=== PATIENT | male | born 2000 | race African-American/Black ===

== ENCOUNTER 2020-08-04 08:54 | Emergency (ER) | payer OTHER, SELFPAY ==
[2020-08-04] MEDS ORDERED: MORPHINE 4 MG/ML SYR ONE (09:41)
[2020-08-04] MEDS ORDERED: ONDANSETRON 4 MG/2 ML VIAL ONE (09:41)
[2020-08-04 09:47] LABS: ALT/SGPT 35 U/L (12-78); AST/SGOT 26 U/L (15-37); Alkaline Phosphatase 87 U/L (45-117); BUN Blood Urea Nitrogen 14 mg/dL (7-18); Bicarbonate 27 mmol/L (21-32); Bilirubin Direct 0.1 mg/dL (0-0.2); Bilirubin Total 0.5 mg/dL (0.2-1.0); Glucose Level 102 mg/dL (74-106); Lipase 63 U/L (73-393); Potassium 3.2 mmol/L (3.5-5.1); Protein, Total 8.1 g/dL (6.4-8.2); Sodium Level 139 mmol/L (136-145)
--- NOTE | 2020-08-04 10:02 | RAD REPORT ---
EXAM DESCRIPTION: CT - Abdomen Pelvis W Contrast - 08/04/2020 9:49 am CLINICAL HISTORY: eval for appendicitis;Abd pain, right upper quadrant pain COMPARISON: No comparisons TECHNIQUE: Biphasic, helical CT imaging of the abdomen and pelvis was performed following 100 ml non -ionic IV contrast. No oral contrast administered. All CT scans are performed using dose optimization technique as appropriate and may include automated exposure control or mA/KV adjustment according to patient size. FINDINGS: No suspicious findings in the lung bases. The liver, spleen, and pancreas show no suspicious findings. Gallbladder and biliary tree are also wi thout suspicious finding. Symmetric renal function is seen with no hydronephrosis or suspicious renal mass. No pyelonephritis o r acute parenchymal process. No bladder abnormalities. No adrenal abnormalities. Food and fluid fill the stomach. No gastric wall thickening or mass. No gastric outlet obstruction id entified. No acute small bowel finding. No dilation of the appendix and no abnormal appendix wall thickening or edema confirmed. There is no appendicolith. No stranding in the adjacent fat or abnormal adjacent mesenteric lymphadenopathy. Smal l central mesenteric lymph nodes are present. Along the anti mesenteric margin of the right transvers e colon there is stranding and edema in the fat. This is an appearance consistent with epiploic appen dagitis. No mass of the colon wall. No free air, free fluid or pneumatosis. No other area of inflamma tory stranding. No mass or bulky lymphadenopathy. Minimal fat extends into the proximal portion of e ach inguinal canal. No suspicious bony findings. IMPRESSION: Acute appendicitis is not suspected at this time. Patient has stranding and edematous change in the fat adjacent to the right-side transverse colon. Th is is an appearance consistent with an epiploic appendagitis. Patient also has a few nonspecific cent ral mesenteric lymph nodes.
[2020-08-04 10:04] LABS: Absolute Lymphocytes (CBC) 1.8 K/uL (0.7-4.9); Basophils % 0.4 % (0-1.3); Hematocrit 41.4 % (39.6-49.0); Lymphocytes % 24.6 % (15.3-44.8); MPV 8.8 fL (7.6-11.3); RBC Red Blood Cell Count 4.89 M/uL (4.33-5.43)
--- NOTE | 2020-08-04 10:10 | EDPHYS ---
Physician Documentation [facility] Name: Mathew Perdomo Age: 20 yrs Sex: Male : 2000 Arrival Date: 08/04/2020 Time: 08:55 Bed 7 Private MD: ED Physician Anson Alvarez HPI: 08/04 09:10 This 20 yrs old Black Male presents to ER via Ambulatory with complaints of Abdominal rn Pain. 09:10 The patient presents with abdominal pain right lower quadrant. Onset: The rn symptoms/episode began/occurred 2 day(s) ago. The symptoms do not radiate. Associated signs and symptoms: Pertinent positives: anorexia, diarrhea, Pertinent negatives: blood in stools, fever, shortness of breath, testicular pain, vomiting blood. The symptoms are described as achy, sharp. Modifying factors: The symptoms are alleviated by nothing, the symptoms are aggravated by movement. Severity of pain: At its worst the pain was moderate in the emergency department the pain is unchanged. The patient has not experienced similar symptoms in the past. The patient has not recently seen a physician. 2 Days of RLQ pain, no fever, + diarrhea, constant, worse with movement and riding in car. . Historical: - Allergies: 09:07 Amoxicillin; iw - Home Meds: 09:07 None [Active]; iw - PMHx: 09:07 None; iw - PSHx: 09:07 left knee; iw - Immunization history:: Adult Immunizations up to date. - Social history:: Smoking status: Patient denies any tobacco usage or history of. - Family history:: not pertinent. - Hospitalizations: : No recent hospitalization is reported. ROS: 09:10 Constitutional: Negative for fever, chills, and weight loss, Eyes: Negative for injury, rn pain, redness, and discharge, Neck: Negative for injury, pain, and swelling, Cardiovascular: Negative for chest pain, palpitations, and edema, Respiratory: Negative for shortness of breath, cough, wheezing, and pleuritic chest pain, Abdomen/GI: Negative for nausea, vomiting, and constipation, Back: Negative for injury and pain, MS/Extremity: Negative for injury and deformity, Skin: Negative for injury, rash, and discoloration, Neuro: Negative for headache, weakness, numbness, tingling, and seizure. Exam: 09:10 Constitutional: This is a well developed, well nourished patient who is awake, alert, rn and in no acute distress. Head/Face: Normocephalic, atraumatic. Cardiovascular: Regular rate and rhythm. No pulse deficits. Respiratory: No increased work of breathing, no retractions or nasal flaring. Abdomen/GI: soft, + RLQ tenderness, no rebound Skin: Warm, dry MS/ Extremity: Pulses equal, no cyanosis. Neurovascular intact. Full, normal range of motion. Equal circumference. Neuro: Awake and alert, GCS 15 Vital Signs: 09:04 BP 142 / 96; Pulse 100; Resp 18 S; Pulse Ox 98% on R/A; Weight 113.4 kg; Height 5 ft. 9 iw in. (175.26 cm); Pain 6/10; 10:12 BP 153 / 83; Pulse 76; Resp 16; Pulse Ox 99% ; bp 09:04 Body Mass Index 36.92 (113.40 kg, 175.26 cm) iw MDM: 09:04 Patient medically screened. rn 10:08 Differential diagnosis: appendicitis, diverticulitis, non-specific abd pain, colitis, rn enteritis. Data reviewed: vital signs, nurses notes, lab test result(s), radiologic studies, CT scan, and as a result, I will discharge patient. Counseling: I had a detailed discussion with the patient and/or guardian regarding: the historical points, exam findings, and any diagnostic results supporting the discharge/admit diagnosis, lab results, radiology results, the need for outpatient follow up, to return to the emergency department if symptoms worsen or persist or if there are any questions or concerns that arise at home. Special discussion: Based on the patient's Hx, exam, and Dx evaluation, there is no indication for emergent surgery or inpatient Tx. It is understood by the patient/guardian that if the Sx's persist or worsen they need to return immediately for re-evaluation. I discussed with the patient/guardian in detail that at this point there is no indication for admission to the hospital. It is understood, however, that if the symptoms persist or worsen the patient needs to return immediately for re-evaluation. 10:08 ED course: No acute appendicitis changes on CT abdomen.. rn 08/04 09:09 Order name: Basic Metabolic Panel; Complete Time: 09:50 rn 08/04 09:09 Order name: CBC with Diff rn 08/04 09:09 Order name: Hepatic Function; Complete Time: 09:50 rn 08/04 09:09 Order name: Lipase; Complete Time: :50 rn 08/04 09:09 Order name: CT Abd/Pelvis - IV Contrast Only; Complete Time: 10:04 rn 08/04 09:09 Order name: IV Saline Lock; Complete Time: : rn 08/04 09:09 Order name: Labs collected and sent; Complete Time: : rn 08/04 09:09 Order name: NPO; Complete Time: rn Administered Medications: 09:20 Drug: morphine 4 mg Route: IVP; Site: right forearm; bp 10:32 Follow up: Response: No adverse reaction; Pain is decreased bp 09:20 Drug: Zofran (Ondansetron) 4 mg Route: IVP; Site: right forearm; bp 10:32 Follow up: Response: No adverse reaction; Pain is decreased bp Disposition: 08/04/20 10:10 Discharged to Home. Impression: Epiploic Appendagitis, Nonspecific mesenteric lymphadenitis. - Condition is Stable. - Discharge Instructions: Colitis. - Prescriptions for Cipro 500 mg Oral Tablet - take 1 tablet by ORAL route every 12 hours for 10 days; 20 tablet. Flagyl 500 mg Oral Tablet - take 1 tablet by ORAL route every 8 hours for 10 days; 30 tablet. - Medication Reconciliation Form, Thank You Letter, Antibiotic Education, Prescription Opioid Use, Work release form form. - Follow up: Private Physician; When: As needed; Reason: Recheck today's complaints, Re-evaluation by your physician. - Problem is new. - Symptoms have improved. Signatures: Dispatcher [employer] Meri Arndt RN RN iw Nieto, Roman, MD MD rn Peltier, Brian RN RN bp Corrections: (The following items were deleted from the chart) 10:32 10:10 08/04/2020 10:10 Discharged to Home. Impression: Epiploic Appendagitis; bp Nonspecific mesenteric lymphadenitis. Condition is Stable. Forms are Medication Reconciliation Form, Thank You Letter, Antibiotic Education, Prescription Opioid Use. Follow up: Private Physician; When: As needed; Reason: Recheck today's complaints, Re-evaluation by your physician. Problem is new. Symptoms have improved. rn
--- NOTE | 2020-08-04 10:10 | ER ---
Nurse's Notes [facility] Name: Mathew Perdomo Age: 20 yrs Sex: Male : 2000 Arrival Date: 08/04/2020 Time: 08:55 Bed 7 Private MD: Diagnosis: Epiploic Appendagitis;Nonspecific mesenteric lymphadenitis Presentation: 08/04 09:04 Chief complaint: Patient states: RLQ pain X 2 days, worse today, +diarrhea, no iw vomiting, denies urinary s/s. Coronavirus screen: At this time, the client does not indicate any symptoms associated with coronavirus-19. Ebola Screen: Patient negative for fever greater than or equal to 101.5 degrees Fahrenheit, and additional compatible Ebola Virus Disease symptoms Patient denies exposure to infectious person. Patient denies travel to an Ebola-affected area in the 21 days before illness onset. No symptoms or risks identified at this time. Initial Sepsis Screen: Does the patient meet any 2 criteria? No. Patient's initial sepsis screen is negative. Does the patient have a suspected source of infection? No. Patient's initial sepsis screen is negative. Risk Assessment: Do you want to hurt yourself or someone else? Patient reports no desire to harm self or others. 09:04 Method Of Arrival: Ambulatory iw 09:04 Acuity: YONI 3 iw Triage Assessment: 09:10 General: Appears in no apparent distress. uncomfortable, Behavior is calm, cooperative, bp appropriate for age. Pain: Complains of pain in right lower quadrant. EENT: No deficits noted. Neuro: No deficits noted. Cardiovascular: No deficits noted. Respiratory: No deficits noted. GI: Reports lower abdominal pain. : No signs and/or symptoms were reported regarding the genitourinary system. Derm: No deficits noted. Musculoskeletal: No deficits noted. Historical: - Allergies: 09:07 Amoxicillin; iw - Home Meds: 09:07 None [Active]; iw - PMHx: 09:07 None; iw - PSHx: 09:07 left knee; iw - Immunization history:: Adult Immunizations up to date. - Social history:: Smoking status: Patient denies any tobacco usage or history of. - Family history:: not pertinent. - Hospitalizations: : No recent hospitalization is reported. Screenin:10 Abuse screen: Denies threats or abuse. Denies injuries from another. Nutritional bp screening: No deficits noted. Tuberculosis screening: No symptoms or risk factors identified. Fall Risk None identified. Assessment: 09:10 General: SEE TRIAGE NOTE. bp 10:09 Reassessment: No changes from previously documented assessment. Patient and/or family bp updated on plan of care and expected duration. Pain level reassessed. Patient is alert, oriented x 3, equal unlabored respirations, skin warm/dry/pink. PT RETURNED FROM CT. 10:31 Reassessment: PT D/C HOME AMBULATORY, DX WITH COLITIS. bp Vital Signs: 09:04 BP 142 / 96; Pulse 100; Resp 18 S; Pulse Ox 98% on R/A; Weight 113.4 kg; Height 5 ft. 9 iw in. (175.26 cm); Pain 6/10; 10:12 BP 153 / 83; Pulse 76; Resp 16; Pulse Ox 99% ; bp 09:04 Body Mass Index 36.92 (113.40 kg, 175.26 cm) iw ED Course: 08:55 Patient arrived in ED. as 08:57 Hi [place], MYLES is Primary Nurse. bp 09:04 Anson Alvarez MD is Attending Physician. rn 09:06 Triage completed. iw 09:07 Arm band placed on. iw 09:10 Patient has correct armband on for positive identification. Bed in low position. Call bp light in reach. Side rails up X2. 09:49 CT Abd/Pelvis - IV Contrast Only In Process Unspecified. EDMS 10:09 Inserted saline lock: 20 gauge in right forearm, using aseptic technique. Blood bp collected. 10:31 No provider procedures requiring assistance completed. IV discontinued, intact, bp bleeding controlled, No redness/swelling at site. Pressure dressing applied. Administered Medications: 09:20 Drug: morphine 4 mg Route: IVP; Site: right forearm; bp 10:32 Follow up: Response: No adverse reaction; Pain is decreased bp 09:20 Drug: Zofran (Ondansetron) 4 mg Route: IVP; Site: right forearm; bp 10:32 Follow up: Response: No adverse reaction; Pain is decreased bp Outcome: 10:10 Discharge ordered by . rn 10:31 Discharged to home ambulatory. bp 10:31 Condition: stable 10:31 Discharge instructions given to patient, Instructed on discharge instructions, follow up and referral plans. medication usage, Demonstrated understanding of instructions, follow-up care, medications, Prescriptions given X 2. 10:32 Patient left the ED. bp Signatures: Dispatcher [employer] Clau You Irene, RN RN Anson Calvert MD MD rn Peltier, MYLES Do RN bp
[2020-08-04 10:40] VITALS: BP 153/83; O2SAT 99
== END 2020-08-04 10:32 | disposition home or self-care (01) ==
LOC: ER 08:54
DX: I88.0 Nonspecific mesenteric lymphadenitis (principal); K63.89 Other specified diseases of intestine; Z88.1 Allergy status to other antibiotic agents
CPT/HCPCS: 36415; 74177; 80048; 80076; 83690; 85025; 96374; 96375; 99284; J2405; Q9967